=== PATIENT | female | born 1985 | race Two or more races ===

== ENCOUNTER 2019-11-27 12:30 | Outpatient (CLI) | payer OTHER ==
[2019-11-27] MEDS ORDERED: ZYRTEC10 M3 PO (12:33)
[2019-11-27] MEDS ORDERED: SINGULAIR 10MG10 MG PO (12:33)
[2019-11-27] MEDS ORDERED: FLONASE16 GM NASAL (12:33)
== END 2019-11-27 16:31 | disposition home or self-care (01) ==
LOC: OFIC 805 12:30
DX: R09.81 Nasal congestion (principal); J30.89 Other allergic rhinitis